=== PATIENT | male | born 1935 | race Caucasian/White ===

== ENCOUNTER 2017-07-01 05:52 | Inpatient (IN) | payer MEDICARE, OTHER ==
[2017-07-01] MEDS ORDERED: ETOMIDATE 20 MG INJ (07:00)
[2017-07-01] MEDS ORDERED: ROCURONIUM 50 MG INJ (07:00)
[2017-07-01 07:04] LABS: AADO2 Arterial 622.4 mmHg (7.0-24.0); Allen Test ACCEPTAB; Arterial Base Excess 1.5 mmol/L (-3.0-3); Arterial Blood Gas Oxygen Sat 88.4 mmHG (95.0-100.0); Arterial COHb 0.5 % (0.0-3.0); Arterial Fraction of Oxyhgb 87.8 % (93.0-99.0); Arterial HCO3 25.1 mmol/L (22.0-26.0); Arterial MetHb 0.2 % (0.0-1.5); Arterial Total Hemglobin 15.3 g/dl (12.0-18.0); Arterial pCO2 36.8 mmhg (35-45); MODE MASK - NRB; Site Right Radial
[2017-07-01] MEDS: IPRATROPIUM (NEB) 0.5 MG/2.5 ML AMP NEB (07:04)
[2017-07-01] MEDS: ALBUTEROL 0.5% (NEB) 2.5 MG/0.5 ML AMP NEB (07:04)
[2017-07-01 07:05] LABS: WHITE BLOOD COUNT 13.5 10^3/ul (4.8-10.8)
[2017-07-01 07:05] LABS: ADD MAN DIFF? NO; BASOPHILS % 0.3 % (0.0-2.0); EOSINOPHILS # 0.2 10^3/ul (0.0-0.5); EOSINOPHILS % 1.5 % (0.0-7.0); HEMATOCRIT 44.9 % (42.0-52.0); HEMOGLOBIN 14.9 g/dl (14.0-18.0); LYMPHOCYTES # 1.4 10^3/ul (0.8-2.9); LYMPHOCYTES % 10.1 % (15.0-51.0); MEAN CORPUSCULAR HGB CONC 33.2 g/dl (32.0-37.0); MEAN CORPUSCULAR VOLUME 90.3 fl (82.0-101.0); MONOCYTE # 0.9 10^3/ul (0.3-0.9); MONOCYTES % 6.5 % (0.0-11.0); NEUTROPHIL # 10.9 10^3/ul (1.6-7.5); PLATELET COUNT 273 10^3/UL (140-415); RED BLOOD COUNT 4.97 10^6/ul (4.70-6.10); RED CELL DISTRIBUTION WIDTH 14.7 % (11.5-14.5)
[2017-07-01 07:16] LABS: INR 1.63; PARTIAL THROMBOPLASTIN TIME 31.2 Sec (25.0-35.0); PROTIME 19.7 Sec (11.9-14.9); PT RATIO 1.5
[2017-07-01 07:20] LABS: ALANINE AMINOTRANSFERASE 47 IU/L (13-69); ALBUMIN/GLOBULIN RATIO 0.71; ALKALINE PHOSPHATASE 247 IU/L (42-121); ANION GAP 13 (8-16); ASPARTATE AMINO TRANSFERASE 27 IU/L (15-46); BILIRUBIN,INDIRECT 0.2 mg/dl (0-1.1); BILIRUBIN,TOTAL 0.2 mg/dl (0.2-1.3); BLOOD UREA NITROGEN 56 mg/dl (7-20); CALCIUM 9.9 mg/dl (8.4-10.2); CARBON DIOXIDE 25 mmol/L (21-31); CHLORIDE 115 mmol/L (97-110); POTASSIUM 3.9 mmol/L (3.5-5.1); SODIUM 149 mmol/L (135-144); TOTAL PROTEIN 7.2 g/dl (6.1-8.1)
[2017-07-01 07:31] LABS: TROPONIN-I 0.017 ng/ml (0.00-0.12)
[2017-07-01 07:41] LABS: GLUCOSE 569 mg/dl (70-220)
[2017-07-01] MEDS: SOD CHLORIDE 0.9% 2,400 ML IV (07:44)
[2017-07-01] MEDS: DEXAMETHASONE 10 MG/ML 1 ML INJ IV (07:45)
[2017-07-01 08:22] LABS: AADO2 Arterial 506.3 mmHg (7.0-24.0); Allen Test ACCEPTAB; Arterial Base Excess -3.3 mmol/L (-3.0-3); Arterial COHb 0.2 % (0.0-3.0); Arterial Fraction of Oxyhgb 98.5 % (93.0-99.0); Arterial HCO3 20.4 mmol/L (22.0-26.0); Arterial MetHb 0.3 % (0.0-1.5); Arterial Total Hemglobin 14.8 g/dl (12.0-18.0); Arterial pCO2 33.1 mmhg (35-45); MODE VENT - AC; Site Right Radial
[2017-07-01] MEDS: PIPER-TAZO 3.375 GM IV (PMX) 100 ML IVPB (08:30)
[2017-07-01 09:06] LABS: LACTIC ACID 2.6 mmol/L (0.5-2.0)
[2017-07-01] MEDS: VANCOMYCIN 1 GM (PMX) 250 ML IVPB (09:47)
[2017-07-01] MEDS: PROPOFOL 100 ML IV (10:04)
[2017-07-01] MEDS: SOD CHLORIDE 0.9% 250 ML IV (10:16)
[2017-07-01 10:47] LABS: ADD UMIC YES; UR ASCORBIC ACID NEGATIVE (NEGATIVE); UR BACTERIA FEW /HPF (NONE SEEN); UR BILIRUBIN (Dip) NEGATIVE (NEGATIVE); UR BLOOD (Dip) 2+ mg/dL (NEGATIVE); UR CLARITY CLOUDY (CLEAR); UR COLOR YELLOW (YELLOW); UR GLUCOSE (Dip) 3+ mg/dL (NEGATIVE); UR KETONES (Dip) NEGATIVE (NEGATIVE); UR LEUKOCYTE ESTERASE (Dip) 2+ Leu/ul (NEGATIVE); UR NITRITE (Dip) NEGATIVE (NEGATIVE); UR RBC 7 /HPF (0-5); UR SPECIFIC GRAVITY (Dip) 1.029 (1.003-1.030); UR TOTAL PROTEIN (Dip) NEGATIVE (NEGATIVE); UR URIC ACID CRYSTAL FEW /HPF (NONE SEEN); UR UROBILINOGEN (Dip) 1+ mg/dL (NEGATIVE); UR WBC 3 /HPF (0-5)
[2017-07-01 11:43] LABS: LACTIC ACID 1.7 mmol/L (0.5-2.0)
[2017-07-01 13:23] LABS: LACTIC ACID 1.7 mmol/L (0.5-2.0)
[2017-07-01] MEDS: SOD CHLORIDE 0.9% 1,000 ML IV (16:08)
[2017-07-01 18:36] LABS: CREATINE KINASE 21 IU/L (23-200)
[2017-07-01 18:47] LABS: B-TYPE NATRIURETIC PEPTIDE 471 PG/ML (0-450)
[2017-07-01 18:50] LABS: CK INDEX 3.3
[2017-07-01] MEDS: MIDAZOLAM (DRIP) 50 mg/50 mL 50 ML IV (18:57)
[2017-07-01 18:58] LABS: CK-MB 0.69 ng/ml (0.0-2.4); TROPONIN-I < 0.012 ng/ml (0.00-0.12)
[2017-07-02 01:08] LABS: CREATINE KINASE < 20 IU/L (23-200)
[2017-07-02 01:34] LABS: CK-MB 0.72 ng/ml (0.0-2.4); TROPONIN-I < 0.012 ng/ml (0.00-0.12)
[2017-07-02] MEDS: SOD CHLORIDE 0.9% 1,000 ML IV ×2 (04:40→15:59)
[2017-07-02] MEDS: MIDAZOLAM (DRIP) 50 mg/50 mL 50 ML IV (06:25)
[2017-07-02 06:53] LABS: CREATINE KINASE < 20 IU/L (23-200)
[2017-07-02 06:54] LABS: CHOLESTEROL 118 mg/dl (100-200)
[2017-07-02 06:54] LABS: CHOL/HDL RATIO 4.5 RATIO; HDL CHOLESTEROL 26 mg/dl (31-75); LDL CHOLESTEROL,CALCULATED 71 mg/dl; TRIGLYCERIDES 103 mg/dl (0-149)
[2017-07-02] MEDS ORDERED: GLUCAGON 1 MG INJ IM (07:00)
[2017-07-02] MEDS ORDERED: GLUCOSE GEL 15 GRAM TUBE PO ×2 (07:00)
[2017-07-02] MEDS ORDERED: GLUCOSE GEL 15 GRAM TUBE BUCCAL (07:00)
[2017-07-02] MEDS ORDERED: DEXTROSE 50% 50 ML SYRINGE IV ×4 (07:00→12:30)
[2017-07-02 07:01] LABS: CK-MB 0.69 ng/ml (0.0-2.4); TROPONIN-I < 0.012 ng/ml (0.00-0.12)
[2017-07-02] MEDS: INSULIN ASPART [NOVOLOG] 3 ML PEN SC ×2 (07:38→12:13)
[2017-07-02] MEDS: INSULIN DETEMIR [LEVEMIR] 3ML CART SC (07:39)
[2017-07-02] MEDS: INSULIN HUMAN REGULAR 100 UNIT in SOD CHLORIDE 0.9% 99 ML IV ×4 (13:19→22:18)
[2017-07-02] MEDS: ACCU-CHEK XX ×12 (13:22→23:30)
[2017-07-02 13:44] LABS: ALANINE AMINOTRANSFERASE 25 IU/L (13-69); ALBUMIN 2.6 g/dl (3.3-4.9); ALBUMIN/GLOBULIN RATIO 0.68; ALKALINE PHOSPHATASE 127 IU/L (42-121); ANION GAP 14 (8-16); ASPARTATE AMINO TRANSFERASE 26 IU/L (15-46); BILIRUBIN,INDIRECT 0.2 mg/dl (0-1.1); BILIRUBIN,TOTAL 0.2 mg/dl (0.2-1.3); BLOOD UREA NITROGEN 53 mg/dl (7-20); CALCIUM 9.4 mg/dl (8.4-10.2); CARBON DIOXIDE 18 mmol/L (21-31); CHLORIDE 124 mmol/L (97-110); CREATININE 1.75 mg/dl (0.61-1.24); GLUCOSE 378 mg/dl (70-220); POTASSIUM 3.8 mmol/L (3.5-5.1); SODIUM 152 mmol/L (135-144); TOTAL PROTEIN 6.4 g/dl (6.1-8.1)
[2017-07-02] MEDS ORDERED: VANCOMYCIN IV PER PHARMACY XX (14:00)
[2017-07-02] MEDS: MEROPENEM 500MG/50 ML (PMX) 50 ML IVPB ×2 (15:59→20:24)
[2017-07-02] MEDS: VANCOMYCIN 750 MG in DEXTROSE 5% 150 ML IVPB (18:08)
[2017-07-02] MEDS: POLYETHYLENE GLYCOL 17 GM PACKET GTB (20:23)
[2017-07-03] MEDS: MIDAZOLAM (DRIP) 50 mg/50 mL 50 ML IV (01:07)
[2017-07-03] MEDS: ACCU-CHEK XX ×24 (01:10→23:30)
[2017-07-03 04:35] LABS: ADD MAN DIFF? NO
[2017-07-03 04:37] LABS: WHITE BLOOD COUNT 13.4 10^3/ul (4.8-10.8)
[2017-07-03 04:37] LABS: BASOPHILS % 0.1 % (0.0-2.0); EOSINOPHILS # 0.1 10^3/ul (0.0-0.5); EOSINOPHILS % 0.4 % (0.0-7.0); HEMATOCRIT 35.7 % (42.0-52.0); LYMPHOCYTES # 1.8 10^3/ul (0.8-2.9); LYMPHOCYTES % 13.2 % (15.0-51.0); MEAN CORPUSCULAR HEMOGLOBIN 30.2 pg (29.0-33.0); MEAN CORPUSCULAR HGB CONC 33.6 g/dl (32.0-37.0); MEAN CORPUSCULAR VOLUME 89.7 fl (82.0-101.0); MEAN PLATELET VOLUME 12.1 fl (7.4-10.4); MONOCYTE # 0.4 10^3/ul (0.3-0.9); MONOCYTES % 2.9 % (0.0-11.0); NEUTROPHIL # 11.1 10^3/ul (1.6-7.5); NEUTROPHILS % 82.8 % (39.0-77.0); PLATELET COUNT 238 10^3/UL (140-415); RED BLOOD COUNT 3.98 10^6/ul (4.70-6.10); RED CELL DISTRIBUTION WIDTH 15.4 % (11.5-14.5)
[2017-07-03] MEDS: SOD CHLORIDE 0.9% 1,000 ML IV ×2 (04:49→17:12)
[2017-07-03 05:00] LABS: ANION GAP 15 (8-16); BLOOD UREA NITROGEN 49 mg/dl (7-20); CALCIUM 8.9 mg/dl (8.4-10.2); CARBON DIOXIDE 21 mmol/L (21-31); CHLORIDE 129 mmol/L (97-110); CREATININE 1.66 mg/dl (0.61-1.24); GLUCOSE 172 mg/dl (70-220); MAGNESIUM 2.3 mg/dl (1.7-2.5); PHOSPHORUS 2.2 mg/dl (2.5-4.9); POTASSIUM 3.5 mmol/L (3.5-5.1)
[2017-07-03 06:18] LABS: SODIUM 161 mmol/L (135-144)
[2017-07-03] MEDS: SOD CHLORIDE 0.45% 1,000 ML IV (07:54)
[2017-07-03] MEDS: POLYETHYLENE GLYCOL 17 GM PACKET GTB ×2 (08:07→21:33)
[2017-07-03 08:49] LABS: AADO2 Arterial 93.2 mmHg (7.0-24.0); Allen Test ACCEPTAB; Arterial Base Excess -2.2 mmol/L (-3.0-3); Arterial Blood Gas Oxygen Sat 96.2 mmHG (95.0-100.0); Arterial COHb 0.1 % (0.0-3.0); Arterial Fraction of Oxyhgb 95.9 % (93.0-99.0); Arterial HCO3 21.1 mmol/L (22.0-26.0); Arterial MetHb 0.2 % (0.0-1.5); Arterial Total Hemglobin 13.6 g/dl (12.0-18.0); Arterial pCO2 31.8 mmhg (35-45); MODE VENT - AC; Site Right Radial
[2017-07-03] MEDS: MEROPENEM 500MG/50 ML (PMX) 50 ML IVPB ×2 (09:06→21:32)
[2017-07-03] MEDS: INSULIN HUMAN REGULAR 100 UNIT in SOD CHLORIDE 0.9% 99 ML IV ×2 (13:38→23:16)
[2017-07-03] MEDS: VANCOMYCIN 750 MG in DEXTROSE 5% 150 ML IVPB (16:35)
[2017-07-04] MEDS: ACCU-CHEK XX ×24 (01:13→23:22)
[2017-07-04] MEDS: SOD CHLORIDE 0.45% 1,000 ML IV (01:41)
[2017-07-04] MEDS: SOD CHLORIDE 0.9% 1,000 ML IV (06:00)
[2017-07-04 06:29] LABS: ADD MAN DIFF? NO
[2017-07-04 06:30] LABS: BASOPHILS % 0.3 % (0.0-2.0); EOSINOPHILS # 0.3 10^3/ul (0.0-0.5); EOSINOPHILS % 2.4 % (0.0-7.0); HEMATOCRIT 36.6 % (42.0-52.0); HEMOGLOBIN 12.2 g/dl (14.0-18.0); LYMPHOCYTES # 2.1 10^3/ul (0.8-2.9); LYMPHOCYTES % 17.7 % (15.0-51.0); MEAN CORPUSCULAR HEMOGLOBIN 30.3 pg (29.0-33.0); MEAN CORPUSCULAR HGB CONC 33.3 g/dl (32.0-37.0); MEAN CORPUSCULAR VOLUME 90.8 fl (82.0-101.0); MONOCYTE # 0.7 10^3/ul (0.3-0.9); MONOCYTES % 5.7 % (0.0-11.0); NEUTROPHIL # 8.7 10^3/ul (1.6-7.5); PLATELET COUNT 231 10^3/UL (140-415); RED BLOOD COUNT 4.03 10^6/ul (4.70-6.10); RED CELL DISTRIBUTION WIDTH 15.7 % (11.5-14.5)
[2017-07-04 06:30] LABS: WHITE BLOOD COUNT 11.9 10^3/ul (4.8-10.8)
[2017-07-04 07:05] LABS: ANION GAP 14 (8-16); BLOOD UREA NITROGEN 39 mg/dl (7-20); CALCIUM 8.6 mg/dl (8.4-10.2); CARBON DIOXIDE 23 mmol/L (21-31); CHLORIDE 124 mmol/L (97-110); CREATININE 1.39 mg/dl (0.61-1.24); GLUCOSE 126 mg/dl (70-220); POTASSIUM 3.6 mmol/L (3.5-5.1); SODIUM 157 mmol/L (135-144)
[2017-07-04] MEDS: MEROPENEM 500MG/50 ML (PMX) 50 ML IVPB ×2 (08:50→20:06)
[2017-07-04] MEDS: POLYETHYLENE GLYCOL 17 GM PACKET GTB ×2 (08:50→20:06)
[2017-07-04 10:19] LABS: AADO2 Arterial 98.3 mmHg (7.0-24.0); Allen Test ACCEPTAB; Arterial Base Excess -0.2 mmol/L (-3.0-3); Arterial COHb 0.2 % (0.0-3.0); Arterial Fraction of Oxyhgb 95.5 % (93.0-99.0); Arterial HCO3 22.7 mmol/L (22.0-26.0); Arterial MetHb 0.3 % (0.0-1.5); Arterial Total Hemglobin 13.8 g/dl (12.0-18.0); Arterial pCO2 32.3 mmhg (35-45); Blood Gas PS 10; MODE VENT - CPAP; Site Right Radial
[2017-07-04] MEDS ORDERED: DEXTROSE 5% 1,000 ML IV (13:30)
[2017-07-04] MEDS: DEXTROSE 5% 500 ML IV ×2 (13:40→23:23)
[2017-07-04 17:09] LABS: VANCOMYCIN,TROUGH 11.4 ug/ml (10.0-20.0)
[2017-07-04] MEDS: VANCOMYCIN 750 MG in DEXTROSE 5% 150 ML IVPB (17:30)
[2017-07-04] MEDS: FLUCONAZOLE 100 MG TAB PO (19:11)
[2017-07-05] MEDS: ACCU-CHEK XX ×23 (00:33→22:46)
[2017-07-05 05:36] LABS: ADD MAN DIFF? NO
[2017-07-05 05:38] LABS: WHITE BLOOD COUNT 11.3 10^3/ul (4.8-10.8)
[2017-07-05 05:38] LABS: BASOPHILS % 0.2 % (0.0-2.0); EOSINOPHILS # 0.2 10^3/ul (0.0-0.5); EOSINOPHILS % 1.6 % (0.0-7.0); HEMATOCRIT 37.8 % (42.0-52.0); HEMOGLOBIN 12.3 g/dl (14.0-18.0); LYMPHOCYTES # 2.2 10^3/ul (0.8-2.9); LYMPHOCYTES % 19.4 % (15.0-51.0); MEAN CORPUSCULAR HEMOGLOBIN 29.9 pg (29.0-33.0); MEAN CORPUSCULAR HGB CONC 32.5 g/dl (32.0-37.0); MEAN PLATELET VOLUME 12.3 fl (7.4-10.4); MONOCYTE # 0.7 10^3/ul (0.3-0.9); NEUTROPHIL # 8.1 10^3/ul (1.6-7.5); NEUTROPHILS % 72.1 % (39.0-77.0); PLATELET COUNT 208 10^3/UL (140-415); RED BLOOD COUNT 4.11 10^6/ul (4.70-6.10); RED CELL DISTRIBUTION WIDTH 15.4 % (11.5-14.5)
[2017-07-05] MEDS: DEXTROSE 5% 500 ML IV ×2 (06:13→09:30)
[2017-07-05 06:48] LABS: ANION GAP 13 (8-16); BLOOD UREA NITROGEN 29 mg/dl (7-20); CALCIUM 8.7 mg/dl (8.4-10.2); CARBON DIOXIDE 26 mmol/L (21-31); CHLORIDE 115 mmol/L (97-110); CREATININE 1.37 mg/dl (0.61-1.24); GLUCOSE 168 mg/dl (70-220); POTASSIUM 3.7 mmol/L (3.5-5.1); SODIUM 150 mmol/L (135-144)
[2017-07-05] MEDS: FLUCONAZOLE 100 MG TAB PO (08:25)
[2017-07-05] MEDS: MEROPENEM 500MG/50 ML (PMX) 50 ML IVPB ×2 (08:25→20:31)
[2017-07-05] MEDS: INSULIN HUMAN REGULAR 100 UNIT in SOD CHLORIDE 0.9% 99 ML IV (08:29)
[2017-07-05] MEDS: POLYETHYLENE GLYCOL 17 GM PACKET GTB ×2 (08:29→20:31)
[2017-07-05 14:26] LABS: ANION GAP 11 (8-16); BLOOD UREA NITROGEN 26 mg/dl (7-20); CALCIUM 8.5 mg/dl (8.4-10.2); CARBON DIOXIDE 25 mmol/L (21-31); CHLORIDE 113 mmol/L (97-110); GLUCOSE 161 mg/dl (70-220); POTASSIUM 3.6 mmol/L (3.5-5.1); SODIUM 145 mmol/L (135-144)
[2017-07-06] MEDS: ACCU-CHEK XX ×25 (00:09→23:00)
[2017-07-06] MEDS: INSULIN HUMAN REGULAR 100 UNIT in SOD CHLORIDE 0.9% 99 ML IV (05:30)
[2017-07-06] MEDS: FLUCONAZOLE 100 MG TAB PO (08:24)
[2017-07-06] MEDS: POLYETHYLENE GLYCOL 17 GM PACKET GTB ×2 (08:25→20:22)
[2017-07-06] MEDS: MEROPENEM 500MG/50 ML (PMX) 50 ML IVPB ×2 (08:25→20:22)
[2017-07-07] MEDS: ACCU-CHEK XX ×14 (01:04→13:46)
[2017-07-07] MEDS: INSULIN HUMAN REGULAR 100 UNIT in SOD CHLORIDE 0.9% 99 ML IV (01:35)
[2017-07-07 04:54] LABS: ADD MAN DIFF? NO
[2017-07-07 05:01] LABS: BASOPHILS % 0.2 % (0.0-2.0); EOSINOPHILS # 0.3 10^3/ul (0.0-0.5); EOSINOPHILS % 3.8 % (0.0-7.0); HEMATOCRIT 32.6 % (42.0-52.0); LYMPHOCYTES % 24.1 % (15.0-51.0); MEAN CORPUSCULAR HEMOGLOBIN 30.4 pg (29.0-33.0); MEAN CORPUSCULAR HGB CONC 33.7 g/dl (32.0-37.0); MEAN CORPUSCULAR VOLUME 90.1 fl (82.0-101.0); MEAN PLATELET VOLUME 12.1 fl (7.4-10.4); MONOCYTE # 0.8 10^3/ul (0.3-0.9); NEUTROPHIL # 5.2 10^3/ul (1.6-7.5); NEUTROPHILS % 62.2 % (39.0-77.0); PLATELET COUNT 193 10^3/UL (140-415); RED BLOOD COUNT 3.62 10^6/ul (4.70-6.10); RED CELL DISTRIBUTION WIDTH 14.7 % (11.5-14.5)
[2017-07-07 05:01] LABS: WHITE BLOOD COUNT 8.4 10^3/ul (4.8-10.8)
[2017-07-07 05:23] LABS: ANION GAP 9 (8-16); BLOOD UREA NITROGEN 24 mg/dl (7-20); CALCIUM 8.4 mg/dl (8.4-10.2); CARBON DIOXIDE 29 mmol/L (21-31); CHLORIDE 107 mmol/L (97-110); CREATININE 1.23 mg/dl (0.61-1.24); GLUCOSE 111 mg/dl (70-220); POTASSIUM 3.6 mmol/L (3.5-5.1); SODIUM 141 mmol/L (135-144)
[2017-07-07] MEDS: FLUCONAZOLE 100 MG TAB PO (09:02)
[2017-07-07] MEDS: MEROPENEM 500MG/50 ML (PMX) 50 ML IVPB (09:03)
[2017-07-07] MEDS: POLYETHYLENE GLYCOL 17 GM PACKET GTB (09:03)
[2017-07-07 12:14] LABS: AADO2 Arterial 87.8 mmHg (7.0-24.0); Allen Test ACCEPTAB; Arterial Base Excess 2.6 mmol/L (-3.0-3); Arterial Blood Gas Oxygen Sat 96.8 mmHG (95.0-100.0); Arterial COHb 0.3 % (0.0-3.0); Arterial Fraction of Oxyhgb 96.3 % (93.0-99.0); Arterial HCO3 25.5 mmol/L (22.0-26.0); Arterial MetHb 0.2 % (0.0-1.5); Arterial Total Hemglobin 12.3 g/dl (12.0-18.0); Arterial pCO2 33.8 mmhg (35-45); Blood Gas PS 10; MODE VENT - CPAP; Site Right Radial
[2017-07-07] MEDS ORDERED: morphine (DRIP) 100 MG/100 ML 100 ML IV (15:00)
[2017-07-07] MEDS: LORAZEPAM 2 MG INJ IV ×2 (15:42→21:36)
[2017-07-07] MEDS: morphine (DRIP) 100 MG/100 ML 100 ML IV (16:04)
[2017-07-08] MEDS: LORAZEPAM 2 MG INJ IV (02:42)
[2017-07-08] MEDS ORDERED: ATROPINE 1% 5 ML OPH SL (03:30)
[2017-07-08] MEDS: ATROPINE 1% 5 ML OPH SL ×2 (04:07→10:51)
[2017-07-08] MEDS: morphine (DRIP) 100 MG/100 ML 100 ML IV (07:49)
== END 2017-07-08 13:26 | DRG 870 ==
LOC: MS1 07-07 21:25 → E/R 05:52 → ICU 21:06
PROVIDERS: Family Medicine
PROC: 5A1955Z Respiratory Ventilation, Greater than 96 Consecutive Hours (ICD-10-PCS; principal; 2017-07-01)
PROC: 0BH17EZ Insertion of Endotracheal Airway into Trachea, Via Natural or Artificial Opening (ICD-10-PCS; 2017-07-01)
DX: A41.9 Sepsis, unspecified organism (principal); J69.0 Pneumonitis due to inhalation of food and vomit; J96.01 Acute respiratory failure with hypoxia; B37.1 Pulmonary candidiasis; J18.9 Pneumonia, unspecified organism; I50.43 Acute on chronic combined systolic (congestive) and diastolic (congestive) heart failure; R40.3 Persistent vegetative state; E87.0 Hyperosmolality and hypernatremia; E46 Unspecified protein-calorie malnutrition; D68.9 Coagulation defect, unspecified; I13.0 Hypertensive heart and chronic kidney disease with heart failure and stage 1 through stage 4 chronic kidney disease, or unspecified chronic kidney disease; N39.0 Urinary tract infection, site not specified; R13.10 Dysphagia, unspecified; E11.22 Type 2 diabetes mellitus with diabetic chronic kidney disease; E11.51 Type 2 diabetes mellitus with diabetic peripheral angiopathy without gangrene; E11.65 Type 2 diabetes mellitus with hyperglycemia; E87.8 Other disorders of electrolyte and fluid balance, not elsewhere classified; E83.39 Other disorders of phosphorus metabolism; N18.3 Chronic kidney disease, stage 3 (moderate); F01.50 Vascular dementia, unspecified severity, without behavioral disturbance, psychotic disturbance, mood disturbance, and anxiety; D64.9 Anemia, unspecified; R03.1 Nonspecific low blood-pressure reading; R65.20 Severe sepsis without septic shock; Y95 Nosocomial condition; Z79.4 Long term (current) use of insulin; Z86.73 Personal history of transient ischemic attack (TIA), and cerebral infarction without residual deficits; Z93.1 Gastrostomy status
CPT/HCPCS: 31500; 36415; 36600; 70450; 71045; 80048; 80053; 80061; 80202; 81001; 82550; 82553; 82803; 82962; 83605; 83735; 83880; 84100; 84443; 84484; 85025; 85610; 85730; 87040; 87070; 87081; 87086; 93005; 93306; 94002; 94003; 94644; 94770; 96365; 96375; 99291-25